=== PATIENT | male | born 1980 | race Caucasian/White ===

== ENCOUNTER 2016-09-19 19:30 | Emergency (ER) | payer OTHER ==
[~2016-09-19] VITALS: Ht 157.5 cm; Wt 72.6 kg
[~2016-09-19 19:30] MED LIST: ATIVAN0.5 M1 PO; FOLIC ACID1 M1 PO; MULTIVITAMINS1 EAC9 PO; NEURONTIN300 M1 PO; OMEPRAZOLE20 M2 PO; PRISTIQ ER50 MG PO; PROPRANOLOL HCL20 M1 PO; THIAMINE HCL100 M1 PO
[2016-09-19 20:40] LABS: ABSOLUTE BASOPHIL COUNT 0 /CUMM (0.0-0.2); ABSOLUTE EOSINOPHIL COUNT 0 /CUMM (0.0-0.7); ABSOLUTE GRANULOCYTE CT 3.4 /CUMM (1.4-6.5); ABSOLUTE LYMPH COUNT 2.1 /CUMM (1.2-3.4); ABSOLUTE MONOCYTE COUNT 0.6 /CUMM (0.10-0.60); BASOPHIL % 0.4 % (0.0-2.0); EOSINOPHIL % 0.6 % (0-5); GRANULOCYTE % 55.9 % (42.2-75.2); HEMATOCRIT 42.8 % (42-52); MEAN CORPUSCULAR HGB 32.4 PG (27.0-31.0); MEAN CORPUSCULAR HGB CONC 33.2 G/DL (33.0-37.0); MEAN CORPUSCULAR VOLUME 97.7 FL (80.0-94.0); MEAN PLATELET VOLUME 7.2 FL (7.4-10.4); PLATELET COUNT 281 /CUMM (130-400); RBC DISTRIBUTION WIDTH 13.7 % (11.5-14.5); RED BLOOD CELL CT 4.38 /CUMM (4.70-6.10); WHITE BLOOD CELL COUNT 6.2 /CUMM (4.8-10.8)
--- NOTE | 2016-09-19 21:08 | ED PSYCHIATRIC COMPLAINT ---
History of Present Illness General Chief Complaint: ETOH/Drug Related Complaint Stated Complaint: ETOH Source: patient Exam Limitations: intoxication Vital Signs & Intake/Output Vital Signs & Intake/Output Vital Signs Date Time Temp Pulse Resp B/P Pulse O2 O2 Flow FiO2 Ox Delivery Rate 09/20 0604 96.8 102 16 101/57 96 Room Air 09/20 0323 96.3 75 16 103/76 09/20 0323 96.3 75 16 103/76 96 09/20 0118 80 18 103/55 98 09/19 2206 98.1 88 16 100/56 94 Room Air 09/19 1952 98.2 94 20 110/60 09/19 1944 98.2 94 20 110/60 96 Room Air ED Intake and Output 09/20 0000 09/19 1200 Intake Total Output Total Balance Patient 160 lb Weight Allergies Coded Allergies: No Known Allergies (07/21/16) Reconcile Medications Desvenlafaxine Succinate (Pristiq ER) 50 MG TAB.ER.24H 1 TAB PO DAILY MENTAL HEALTH (Reported) Folic Acid 1 MG TABLET 1 TAB PO DAILY alcohol abuse Gabapentin (Neurontin) 300 MG CAPSULE 1 CAP PO TID depression Lorazepam (Ativan) 0.5 MG TABLET 0.5 MG PO SEE ADMIN CRITERIA alcohol withdrawl On 09/07 take 1 tab three times a day On 09/08 take 1 tab two times a day On 09/09 take 1 tab once a day Multiple Vitamin (Multivitamins) 1 EACH TABLET 1 TAB PO DAILY vitamins Omeprazole 20 MG CAPSULE.DR 40 MG PO DAILY AC GERD Propranolol HCl 20 MG TABLET 1 TAB PO BID UNKNOWN (Reported) Thiamine HCl 100 MG TABLET 1 TAB PO DAILY alcohol detox Triage Note: PT BIBA FROM HOME, PTS GIRLFRIEND CALLED 911 FOR ETOH. PT IS TEARFUL, AND AROUSABLE ON ARRIVAL. PT IS CALM AND COOPERATIVE. OFFERING NO COMPLAINTS AT THIS TIME, PT DENIES PAIN. BILATERAL CHEST RISE AND FALL NOTED, NO ACUTE DISTRESS. Triage Nurses Notes Reviewed? yes HPI: This patient is a 36-year-old female who is brought into the emergency department today by ambulance for alcohol intoxication. Per EMS, the patient's girlfriend called 911 due to alcohol consumption. This patient is arousable but clinically intoxicated during this history. He reported that he thinks he drank 1 pint of vodka today. He denied any history of any alcohol withdrawal seizures. The patient denied any suicidal or homicidal ideation. He denied any runny or visual hallucinations. He denied any illicit drug use. The patient denied any fevers, chills, chest pain, shortness of breath, abdominal pain, nausea, vomiting. (KIP ZHOU PA-C) Past History Travel History Traveled to [place] past 21 day No Medical History Any Pertinent Medical History? 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 No (KIP ZHOU PA-C) Review of Systems Review of Systems Constitutional: Reports: no symptoms. EENTM: Reports: no symptoms. Respiratory: Reports: no symptoms. Cardiovascular: Reports: no symptoms. GI: Reports: no symptoms. Musculoskeletal: Reports: no symptoms. Skin: Reports: no symptoms. Neurological/Psychological: Reports: no symptoms. 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 EOMI bilaterally Neck: Supple, no lymphadenopathy Back: Normal inspection Cardiovascular: Regular rate and rhythm with no murmurs, rubs or gallops Respiratory: Chest nontender. No respiratory distress. Breath sounds clear to auscultation bilaterally Abdomen: Soft, nontender and nondistended Extremity: Normal and equal pulses. Neuro: Alert oriented x3, cranial nerves II through XII grossly intact. Skin: No appreciable rash on exposed skin, skin is warm and dry. SAD PERSONS Done? patient not suicidal (KIP ZHOU PA-C) Progress Differential Diagnosis: drug intoxication, drug overdose, drug withdrawal, electrolyte abnormality, encephalitis, hypoglycemia, hypothyroidism, IC hem/mass /tumor, alcohol intoxication, alcohol withdrawal, major depressive disorder, alcohol dependence Plan of Care: Orders Procedure Date/time Status CIWA 09/19 1947 Active URINE DRUGS OF ABUSE 09/19 1947 Complete ETHANOL 09/19 1947 Complete COMPREHENSIVE METABOLIC PANEL 09/19 1947 Complete CBC WITHOUT DIFFERENTIAL 09/19 1947 Complete Laboratory Tests 09/20/16 0024: Urine Opiates Screen < 100.00, Methadone Screen < 40, Barbiturate Screen < 60, Ur Phencyclidine Scrn < 6.00, Amphetamines Screen < 100, U Benzodiazepines Scrn 420 H, Urine Cocaine Screen < 50, Urine Cannabis Screen < 5.00 09/19/16 2030: Anion Gap 21 H, Estimated GFR > 60, BUN/Creatinine Ratio 14.4, Glucose 88, Calcium 8.3 L, Total Bilirubin 0.4, AST 110 H, ALT 228 H, Alkaline Phosphatase 76, Total Protein 7.0, Albumin 4.2, Globulin 2.8, Albumin/Globulin Ratio 1.5, CBC w Diff NO MAN DIFF REQ, RBC 4.38 L, MCV 97.7 H, MCH 32.4 H, RDW 13.7, MPV 7.2 L, Gran % 55.9, Lymphocytes % 33.6, Monocytes % 9.5 H, Eosinophils % 0.6, Basophils % 0.4, Absolute Granulocytes 3.4, Absolute Lymphocytes 2.1, Absolute Monocytes 0.6, Absolute Eosinophils 0, Absolute Basophils 0, PUBS MCHC 33.2, Serum Alcohol 363.0 Hand-Off Endorsed To: RICHI MILLS MD Endorsed Time: 56 Pending: other (RE-EVAL ONCE SOBER) Comments: This patient's serum EtOH is 363. This patient will need to be reevaluated for SI or HI in the morning once he is sober. This patient also has [employer] for insurance, so if he does want alcohol detox, he will need a preauthorization by case management. (KIP ZHOU PA-C) Comments: Declines detox can not afford to miss work. Feels anxious. Ativan ordered. (RICHI MILLS MD) Departure Departure Disposition: HOME OR SELF CARE Condition: Stable Clinical Impression Primary Impression: Alcohol intoxication Qualifiers: Complication of substance-induced condition: uncomplicated Qualified Code: F10.120 - Alcohol abuse with intoxication, uncomplicated Referrals: PATIENT HAS NO PRIMARY CARE DR (PCP/Family) (KIP ZHOU PA-C) Departure Time of Disposition: 629 Departure Forms: DETOX FACILITIES LIST General Discharge Information PA/OPERATIONS PROGRAM MANAGER Co-Sign Statement Statement: ED Attending supervision documentation- x I saw and evaluated the patient. I have also reviewed all the pertinent lab results and diagnostic results. I agree with the findings and the plan of care as documented in the PA's/OPERATIONS PROGRAM MANAGER's documentation. [] I have reviewed the ED Record and agree with the PA's/OPERATIONS PROGRAM MANAGER's documentation. [] Additions or exceptions (if any) to the PAs/OPERATIONS PROGRAM MANAGER's note and plan are summarized below: [] (RICHI MILLS MD) as documented in the PA's/OPERATIONS PROGRAM MANAGER's documentation. [] I have reviewed the ED Record and agree with the PA's/OPERATIONS PROGRAM MANAGER's documentation. [] Additions or exceptions (if any) to the PAs/OPERATIONS PROGRAM MANAGER's note and plan are summarized below: [] (RICHI MILLS MD)
[2016-09-20 06:04] VITALS: BP 101/57
== END 2016-09-20 06:13 ==
LOC: ERH 19:30
PROVIDERS: Physician Assistant
DX: F10.129 Alcohol abuse with intoxication, unspecified (principal)
CPT/HCPCS: 80307; G0480

== ENCOUNTER 2016-10-03 04:58 | Emergency (ER) | payer OTHER ==
[~2016-10-03] VITALS: Ht 160 cm; Wt 63.5 kg
--- NOTE | 2016-10-03 05:03 | ED GENERAL ADULT ---
History of Present Illness General Chief Complaint: Palpitations Stated Complaint: "I'M DETOXING" BIBA Source: patient Exam Limitations: no limitations Allergies Coded Allergies: No Known Allergies (07/21/16) Reconcile Medications Desvenlafaxine Succinate (Pristiq ER) 50 MG TAB.ER.24H 1 TAB PO DAILY MENTAL HEALTH (Reported) Folic Acid 1 MG TABLET 1 TAB PO DAILY alcohol abuse Gabapentin (Neurontin) 300 MG CAPSULE 1 CAP PO TID depression Lorazepam (Ativan) 0.5 MG TABLET 0.5 MG PO SEE ADMIN CRITERIA alcohol withdrawl On 09/07 take 1 tab three times a day On 09/08 take 1 tab two times a day On 09/09 take 1 tab once a day Multiple Vitamin (Multivitamins) 1 EACH TABLET 1 TAB PO DAILY vitamins Omeprazole 20 MG CAPSULE.DR 40 MG PO DAILY AC GERD Propranolol HCl 20 MG TABLET 1 TAB PO BID UNKNOWN (Reported) Thiamine HCl 100 MG TABLET 1 TAB PO DAILY alcohol detox Triage Nurses Notes Reviewed? 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 EENTM: Reports: no symptoms. Respiratory: Reports: no symptoms. Cardiovascular: Reports: no symptoms. GI: Reports: no symptoms. Genitourinary: Reports: no symptoms. Musculoskeletal: Reports: no symptoms. Skin: Reports: no symptoms. Neurological/Psychological: Reports: no symptoms. Hematologic/Endocrine: Reports: no symptoms. Immunologic/Allergic: Reports: no symptoms. All Other Systems: Reviewed and Negative Departure Departure Condition: Stable Referrals: PATIENT HAS NO PRIMARY CARE DR (PCP/Family) Departure Forms: Customer Survey General Discharge Information
[2016-10-03 05:05] VITALS: BP 133/86
[2016-10-03] MEDS ORDERED: ZOFRAN ODT4 M1 SL (05:12)
[2016-10-03] MEDS ORDERED: CHLORDIAZEPOXID25 M3 PO (05:12)
--- NOTE | 2016-10-03 06:13 | ED AMS/SEIZURE/WEAK/DIZZY ---
History of Present Illness General Chief Complaint: Altered Mental Status Stated Complaint: "I'M DETOXING" BIBA Source: patient Exam Limitations: no limitations Vital Signs & Intake/Output Vital Signs & Intake/Output Vital Signs Date Time Temp Pulse Resp B/P Pulse O2 O2 Flow FiO2 Ox Delivery Rate 10/03 0506 97 Room Air Room Air 10/03 0505 98.0 142 22 133/86 97 Room Air Allergies Coded Allergies: No Known Allergies (07/21/16) Reconcile Medications Chlordiazepoxide HCl 25 MG CAPSULE 1 CAP PO TID PRN ALCOHOL WITHDRAWAL THREE PILLS... [id number] Desvenlafaxine Succinate (Pristiq ER) 50 MG TAB.ER.24H 1 TAB PO DAILY MENTAL HEALTH (Reported) Folic Acid 1 MG TABLET 1 TAB PO DAILY alcohol abuse Gabapentin (Neurontin) 300 MG CAPSULE 1 CAP PO TID depression Lorazepam (Ativan) 0.5 MG TABLET 0.5 MG PO SEE ADMIN CRITERIA alcohol withdrawl On 09/07 take 1 tab three times a day On 09/08 take 1 tab two times a day On 09/09 take 1 tab once a day Multiple Vitamin (Multivitamins) 1 EACH TABLET 1 TAB PO DAILY vitamins Omeprazole 20 MG CAPSULE.DR 40 MG PO DAILY AC GERD Ondansetron (Zofran Odt) 4 MG TAB.RAPDIS 1 TAB SL TID PRN NAUSEA Propranolol HCl 20 MG TABLET 1 TAB PO BID UNKNOWN (Reported) Thiamine HCl 100 MG TABLET 1 TAB PO DAILY alcohol detox Triage Note: 36YO MALE TO RM 3 VIA AMB FROM HOME W/CO PALPITATIONS, SHAKINESS AND DRY MOUTH. PT STATES "HE IS AN ALCOHOLIC, HIS LAST DRINK WAS VODKA AT 0000 ADN HE IS SCHEDULED TO GO TO DETOX PROGRAM THIS AM AT 10AM IN [place]. ALSO STATES "HE VOMITED X 2 PRIOR TO EMS ARRIVAL. Triage Nurses Notes Reviewed? yes Onset: Gradual Duration: day(s): Injury Environment: home Severity: moderate Modifying Factors: Worsens With: other ("I am detoxing"). Associated Symptoms: tremors HPI: 36-year-old gentleman with a history of alcohol dependence and prior detox events presents with tremors and increased anxiety. He states that he recently attempted to detox and suffered a relapse. He then attempted to stop began and notes that he has an appointment at [facility] today at 8 AM. He states, "it is so hard to get an appointment I don't want to miss it." He denies suicidality and homicidality delusions and seizures. He shares that he very much would like to make it to the [facility] appointment. He is otherwise well. He denies other drug use. Past History Travel History Traveled to [place] past 21 day No Medical History Any Pertinent Medical History? 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 No Review of Systems Review of Systems Constitutional: Reports: no symptoms. EENTM: Reports: no symptoms. Respiratory: Reports: no symptoms. Cardiovascular: Reports: no symptoms. GI: Reports: no symptoms. Genitourinary: Reports: no symptoms. Musculoskeletal: Reports: no symptoms. Skin: Reports: no symptoms. Neurological/Psychological: Reports: no symptoms. Hematologic/Endocrine: Reports: no symptoms. Immunologic/Allergic: Reports: no symptoms. All Other Systems: Reviewed and Negative Physical Exam Physical Exam General Appearance: well developed/nourished, mild distress Head: atraumatic, normal appearance Eyes: Bilateral: normal appearance. Ears, Nose, Throat: normal pharynx, normal ENT inspection Neck: normal inspection, supple, full range of motion Respiratory: normal breath sounds, chest non-tender, no respiratory distress, quiet respiration, lungs clear Cardiovascular: regular rate/rhythm Gastrointestinal: normal bowel sounds, soft, non-tender Back: normal inspection Extremities: normal range of motion Neurologic/Psych: no motor/sensory deficits, awake, alert, oriented x 3, patient is anxious with diffuse tremor in both hands, mild Skin: intact, normal color, warm/dry Core Measures ACS in differential dx? No CVA/TIA Diagnosis: No Severe Sepsis Present: No Septic Shock Present: No Progress Differential Diagnosis: alcohol intoxication, alcohol withdrawal vs other. Plan of Care: discussed at great length with patient who leaves in company of his girlfriend. Initial ED EKG: none Departure Departure Disposition: HOME OR SELF CARE Condition: Stable Clinical Impression Primary Impression: Alcohol withdrawal syndrome Referrals: PATIENT HAS NO PRIMARY CARE DR (PCP/Family) Departure Forms: Customer Survey Detox Facilities List General Discharge Information Prescriptions: Current Visit Scripts Ondansetron (Zofran Odt) 1 TAB SL TID PRN NAUSEA #10 TAB Chlordiazepoxide HCl 1 CAP PO TID PRN ALCOHOL WITHDRAWAL #3 CAP Ref 1 THREE PILLS... [id number] Comments September 27 2016, 6:10 AM: Patient feels better after Zofran Ativan 2 mg IV Librium and 1 L of normal saline. We discussed the plan at great length. Given that he is otherwise healthy, I do not feel it necessary to check labs, especially since it is imperative that he make it on time to his 8 AM intake meeting at the [facility]. He is highly motivated to make it to this appointment. I gave him a prescription for 3 pills of Librium as well as a prescription for Zofran. I counseled him to go directly to the [facility]. He expresses understanding at this plan.
== END 2016-10-03 06:16 ==
LOC: ERH 04:58
DX: F10.239 Alcohol dependence with withdrawal, unspecified (principal)
CPT/HCPCS: 96361; 96374; 96375; J2405